=== PATIENT | female | born 1960 | race African-American/Black ===

== ENCOUNTER 2020-03-08 11:09 | Emergency (ER) | payer SELFPAY, OTHER ==
--- OUTSIDE RECORDS SUMMARY | 2020-03-08 11:12 | XMS REPORT | Continuity of Care Document ---
:1960 Author Organization [facility] t Address [address] [place] [address] Care Team Providers Name Role Phone Unavailable Unavailable Unavailable Problems This patient has no known problems. Allergies, Adverse Reactions, Alerts This patient has no known allergies or adverse reactions. Medications This patient has no known medications. Procedures This patient has no known procedures. Results Test Description Test Time Test Comments Results Result Sourc e Comments SCR MAMM 2019-02-02 - SCR MAMM BILATERAL BILATERAL DAGMAR 14:18:55 DAGMAR CAD CAD DIGITAL DIGITALBILATERAL DIGITAL SCREENING MAMMOGRAM 3D/2D WITH CAD: 01/19/2019CLINICAL: Asymptomatic. Digital breast tomosynthesis was performed in addition to routine CC and MLO views. Current mammographic images were evaluated by either a Boundless M-Vu or a S[employer]y ImageChecker CAD (computer aided detection system). Comparison is made to exams dated 03/17/2016 mammogram and 06/30/2012 mammogram - [facility]. The tissue of both breasts is predominantly fatty. No suspicious mass, architectural distortion, malignant type calcification, or lymph node abnormality detected. Breast architecture is stable compared to prior exams.IMPRESSION: NEGATIVEThere is no mammographic evidence of malignancy. Resume annual screening mammography in one year. Trish finney/lm:02/02/2019 14:18:55 Clerk To Justice: Marika Delaney MM, [facility] Mammographyletter sent: BIRADS 1-2 Normal Mammogram BI-RADS: 1 Negative
--- NOTE | 2020-03-08 13:57 | RAD REPORT ---
EXAM DESCRIPTION: [place] Single View03/08/2020 1:16 pm CLINICAL HISTORY: cough COMPARISON: 2015 FINDINGS: Mild bilateral pulmonary opacities suspected. . The heart is borderline enlarged IMPRESSION: Mild bilateral pulmonary opacities are suspected which may indicate mild pneumonia
[2020-03-08] MEDS ORDERED: AZITHROMYCIN 250 MG TAB ONE (14:46)
[2020-03-08] MEDS ORDERED: CEFTRIAXONE/SWI 1gm 1 GM/10 ML SYR ONE (14:46)
[2020-03-08 14:54] LABS: Absolute Lymphocytes (CBC) 0.7 K/uL (0.7-4.9); Basophils % 0.1 % (0-1.3); Lymphocytes % 16.7 % (15.3-44.8); MPV 8.1 fL (7.6-11.3); RBC Red Blood Cell Count 3.56 M/uL (3.86-4.86)
[2020-03-08 15:09] LABS: Potassium 4.1 mmol/L (3.5-5.1)
--- NOTE | 2020-03-08 16:30 | EDPHYS ---
Physician Documentation [facility] Name: Hillary Cook Age: 59 yrs Sex: Female : 1960 Arrival Date: 03/08/2020 Time: 11:21 Bed 19 Private MD: ED Physician Orlin Perales HPI: 03/08 16:34 This 59 yrs old Black Female presents to ER via Ambulatory with complaints of Breathing kb Difficulty, LOSS OF APPETIT.. 16:34 The patient has not experienced similar symptoms in the past. The patient has not kb recently seen a physician. 16:36 The patient or guardian reports cough, that is intermittent, described as moderate, kb with no sputum, difficulty breathing, flu symptoms, myalgias. Onset: The symptoms/episode began/occurred 3 day(s) ago. Severity of symptoms: At their worst the symptoms were moderate, in the emergency department the symptoms are unchanged. Modifying factors: The symptoms are alleviated by nothing, the symptoms are aggravated by nothing. Associated signs and symptoms: The patient has no apparent associated signs or symptoms. Historical: - Allergies: 12:02 No Known Allergies; ss - Immunization history:: Adult Immunizations up to date. - Social history:: Smoking status: Patient denies any tobacco usage or history of. ROS: 16:33 ENT: Negative for injury, pain, and discharge, Neck: Negative for injury, pain, and kb swelling, Cardiovascular: Negative for chest pain, palpitations, and edema, MS/Extremity: Negative for injury and deformity, Skin: Negative for injury, rash, and discoloration, Neuro: Negative for headache, weakness, numbness, tingling, and seizure. 16:33 Constitutional: Positive for body aches, malaise. kb 16:33 Respiratory: Positive for cough, shortness of breath. 16:33 Abdomen/GI: Positive for nausea. Exam: 16:33 Constitutional: This is a well developed, well nourished patient who is awake, alert, kb and in no acute distress. Head/Face: Normocephalic, atraumatic. Neck: Trachea midline, no thyromegaly or masses palpated, and no cervical lymphadenopathy. Supple, full range of motion without nuchal rigidity, or vertebral point tenderness. No Meningismus. Chest/axilla: Normal chest wall appearance and motion. Nontender with no deformity. No lesions are appreciated. Cardiovascular: Regular rate and rhythm with a normal S1 and S2. No gallops, murmurs, or rubs. Normal PMI, no JVD. No pulse deficits. Respiratory: Lungs have equal breath sounds bilaterally, clear to auscultation and percussion. No rales, rhonchi or wheezes noted. No increased work of breathing, no retractions or nasal flaring. Abdomen/GI: Soft, non-tender, with normal bowel sounds. No distension or tympany. No guarding or rebound. No evidence of tenderness throughout. Skin: Warm, dry with normal turgor. Normal color with no rashes, no lesions, and no evidence of cellulitis. MS/ Extremity: Pulses equal, no cyanosis. Neurovascular intact. Full, normal range of motion. Neuro: Awake and alert, GCS 15, oriented to person, place, time, and situation. Cranial nerves II-XII grossly intact. Motor strength 5/5 in all extremities. Sensory grossly intact. Cerebellar exam normal. Normal gait. Vital Signs: 12:00 BP 112 / 73; Pulse 66; Resp 17; Temp 98.9(O); Pulse Ox 97% on R/A; Weight 100.7 kg; ss Height 5 ft. 4 in. (162.56 cm); Pain 9/10; 14:02 BP 142 / 82; Pulse 65; Resp 18; Pulse Ox 99% on R/A; ll1 15:00 BP 136 / 86; Pulse 70; Resp 19; Pulse Ox 98% on R/A; ll1 16:39 BP 136 / 79; Pulse 73; Resp 20; Pulse Ox 97% on R/A; ll1 12:00 Body Mass Index 38.11 (100.70 kg, 162.56 cm) MDM: 12:13 Patient medically screened. kb 16:32 Data reviewed: vital signs, nurses notes. Data interpreted: Pulse oximetry: on room air kb is 99 %. Interpretation: normal. Counseling: I had a detailed discussion with the patient and/or guardian regarding: the historical points, exam findings, and any diagnostic results supporting the discharge/admit diagnosis, lab results, radiology results, the need for outpatient follow up, a family practitioner, to return to the emergency department if symptoms worsen or persist or if there are any questions or concerns that arise at home. 03/08 12:54 Order name: COVID-19; Complete Time: 07:18 kb 03/08 14:17 Order name: CBC with Diff; Complete Time: 15:18 kb 03/08 12:54 Order name: Chest Single View XRAY; Complete Time: 13:58 kb 03/08 14:17 Order name: Basic Metabolic Panel; Complete Time: 15:16 kb 03/08 14:17 Order name: Blood Culture Adult (2) kb 03/08 14:17 Order name: IV Start; Complete Time: 14:40 kb Administered Medications: 14:50 Drug: Rocephin 1 grams Route: IV; Rate: calculated rate; Site: right antecubital; ll1 16:46 Follow up: Response: No adverse reaction; IV Status: Completed infusion; IV Intake: 20mlss 14:50 Drug: Zithromax 500 mg Route: PO; ll1 16:46 Follow up: Response: No adverse reaction; RASS: Alert and Calm (0) ss 16:44 Not Given (Other Intervention Used): Decadron - Dexamethasone 10 mg IVP once kb 16:53 Drug: predniSONE 60 mg Route: PO; ss 16:53 Follow up: Response: No adverse reaction; Medication administered at discharge. ss Disposition: 03/09 10:28 Co-signature as Attending Physician, Orlin Perales MD I agree with the assessment and seth plan of care. Disposition: 03/08/20 16:29 Discharged to Home. Impression: Pneumonia, unspecified organism. - Condition is Stable. - Discharge Instructions: Community-Acquired Pneumonia, Adult, [id number], COVID-19. - Prescriptions for Prednisone 20 mg Oral Tablet - take 1 tablet by ORAL route once daily for 5 days; 5 tablet. Albuterol Sulfate 90 mcg/actuation - inhale 1-2 puff by INHALATION route every 4-6 hours; 1 Inhaler. Zithromax 500 mg Oral Tablet - take 1 tablet by ORAL route once daily for 5 days; 5 tablet. - Medication Reconciliation Form, Thank You Letter, Antibiotic Education, Prescription Opioid Use form. - Follow up: Emergency Department; When: As needed; Reason: Worsening of condition. Follow up: Private Physician; When: 2 - 3 days; Reason: Recheck today's complaints, Continuance of care, Re-evaluation by your physician. Addendum: 03/12/2020 07:21 Addendum: Notified patient of positive coronavirus test result, is admitted at [facility], r n feeling better. NOtified at 0720 03/12/20. Signatures: Dispatcher [employer] EDLadonna Ríos, ENTREPRENEUR-Shivam HURTADO-Orlin Phillips MD MD cha Nieto, Roman, MD MD rn Smirch, Shelby, RN RN Robi Flores RN RN ll1 Corrections: (The following items were deleted from the chart) 03/08 16:54 16:29 03/08/2020 16:29 Discharged to Home. Impression: Pneumonia, unspecified organism. ss Condition is Stable. Forms are Medication Reconciliation Form, Thank You Letter, Antibiotic Education, Prescription Opioid Use. Follow up: Emergency Department; When: As needed; Reason: Worsening of condition. Follow up: Private Physician; When: 2 - 3 days; Reason: Recheck today's complaints, Continuance of care, Re-evaluation by your physician. kb
--- NOTE | 2020-03-08 16:30 | ER ---
Nurse's Notes [facility] Name: Hillary Cook Age: 59 yrs Sex: Female : 1960 Arrival Date: 03/08/2020 Time: 11:21 Bed 19 Private MD: Diagnosis: Pneumonia, unspecified organism Presentation: 03/08 12:00 Chief complaint: Patient states: body aches, cough, SOB and nausea x 3 days. Denies ss fever. Coronavirus screen: Patient reports a cough. Patient reports shortness of breath or difficulty breathing. Patient denies measured and/or subjective temperature greater than 100.4F prior to today's visit. Patient denies travel on a cruise ship or to a country the [facility] currently lists as an affected area. Patient denies contact with known and/or suspected case of COVID-19. Ebola Screen: Patient denies exposure to infectious person. Patient denies travel to an Ebola-affected area in the 21 days before illness onset. Initial Sepsis Screen: Does the patient meet any 2 criteria? No. Patient's initial sepsis screen is negative. Does the patient have a suspected source of infection? No. Patient's initial sepsis screen is negative. Risk Assessment: Do you want to hurt yourself or someone else? Patient reports no desire to harm self or others. Onset of symptoms was March 05, 2020. 12:00 Method Of Arrival: Ambulatory ss 12:00 Acuity: LUCIO 3 ss Triage Assessment: 17:14 General: Appears in no apparent distress. Respiratory: Onset: The symptoms/episode ll1 began/occurred 1 week. Historical: - Allergies: 12:02 No Known Allergies; ss - Immunization history:: Adult Immunizations up to date. - Social history:: Smoking status: Patient denies any tobacco usage or history of. Screenin:04 Abuse screen: Denies threats or abuse. Nutritional screening: No deficits noted. ll1 Tuberculosis screening: No symptoms or risk factors identified. Fall Risk None identified. Total De [place] Cruz Fall Scale indicates No Risk (0-24 pts). Assessment: 14:02 General: Appears in no apparent distress. Behavior is calm, cooperative. Pain: Denies ll1 pain. Neuro: No deficits noted. Cardiovascular: Rhythm is regular. Respiratory: Airway is patent Trachea midline Respiratory effort is even, unlabored, Respiratory pattern is regular, symmetrical, Breath sounds are clear bilaterally. the patient has mild shortness of breath. GI: Reports nausea. Musculoskeletal: Circulation, motion, and sensation intact. Capillary refill < 3 seconds, Reports body aches. 15:00 Reassessment: No changes from previously documented assessment. Patient and/or family ll1 updated on plan of care and expected duration. Pain level reassessed. Patient is alert, oriented x 3, equal unlabored respirations, skin warm/dry/pink. 16:00 Reassessment: No changes from previously documented assessment. Patient and/or family ll1 updated on plan of care and expected duration. Pain level reassessed. Patient is alert, oriented x 3, equal unlabored respirations, skin warm/dry/pink. 16:45 Reassessment: No changes from previously documented assessment. Patient and/or family ll1 updated on plan of care and expected duration. Pain level reassessed. Patient is alert, oriented x 3, equal unlabored respirations, skin warm/dry/pink. States she doesn't feel better. Jon Luna, to bedside to discuss plan of care. Still cleared for discharge. Vital Signs: 12:00 BP 112 / 73; Pulse 66; Resp 17; Temp 98.9(O); Pulse Ox 97% on R/A; Weight 100.7 kg; ss Height 5 ft. 4 in. (162.56 cm); Pain 9/10; 14:02 BP 142 / 82; Pulse 65; Resp 18; Pulse Ox 99% on R/A; ll1 15:00 BP 136 / 86; Pulse 70; Resp 19; Pulse Ox 98% on R/A; ll1 16:39 BP 136 / 79; Pulse 73; Resp 20; Pulse Ox 97% on R/A; ll1 12:00 Body Mass Index 38.11 (100.70 kg, 162.56 cm) ED Course: 11:21 Patient arrived in ED. fj1 12:01 Triage completed. ss 12:02 Arm band placed on right wrist. ss 12:06 Ladonna Luna FNP-C is PHCP. kb 12:06 Orlin Perales MD is Attending Physician. kb 12:23 Robi Rea RN is Primary Nurse. ll1 13:17 Chest Single View XRAY In Process Unspecified. EDMS 14:00 Inserted saline lock: 22 gauge in right antecubital area, using aseptic technique. ll1 Blood collected. 14:04 Patient has correct armband on for positive identification. Bed in low position. Call ll1 light in reach. Side rails up X 1. Pulse ox on. NIBP on. 16:53 No provider procedures requiring assistance completed. IV discontinued, intact, ss bleeding controlled, No redness/swelling at site. Pressure dressing applied. Administered Medications: 14:50 Drug: Rocephin 1 grams Route: IV; Rate: calculated rate; Site: right antecubital; ll1 16:46 Follow up: Response: No adverse reaction; IV Status: Completed infusion; IV Intake: 20mlss 14:50 Drug: Zithromax 500 mg Route: PO; ll1 16:46 Follow up: Response: No adverse reaction; RASS: Alert and Calm (0) ss 16:44 Not Given (Other Intervention Used): Decadron - Dexamethasone 10 mg IVP once kb 16:53 Drug: predniSONE 60 mg Route: PO; ss 16:53 Follow up: Response: No adverse reaction; Medication administered at discharge. ss Intake: 16:46 IV: 20ml; Total: 20ml. ss Outcome: 16:29 Discharge ordered by MD. kb 16:53 Discharged to home via wheelchair. ss 16:53 Condition: good 16:53 Discharge instructions given to patient, Instructed on discharge instructions, follow up and referral plans. medication usage, Demonstrated understanding of instructions, follow-up care, medications, Prescriptions given X 3. 16:54 Patient left the ED. ss Signatures: Dispatcher [employer] EDNV Ladonna Luna, STATE AUDITORSahil CORDONP-Evelyn Renteria RN RN ss James, Frank Robi Carrington, SHYAM RN ll1 Corrections: (The following items were deleted from the chart) 17:17 17:16 Inserted ll1 ll1
[2020-03-08] MEDS ORDERED: predniSONE 20 MG TAB ONE (16:54)
[2020-03-08 17:22] VITALS: TEMP 98.9
[2020-03-08 17:28] VITALS: BP 136/79; O2SAT 97
== END 2020-03-08 16:54 | disposition home or self-care (01) ==
LOC: ER 11:09
DX: U07.1 COVID-19 (principal); J18.9 Pneumonia, unspecified organism
CPT/HCPCS: 36415; 71045; 80048; 85025; 87040; 96365; 96366; 99284; J0696; J7512; U0001